=== PATIENT | female | born 1975 | race Caucasian/White ===

== ENCOUNTER 2018-01-27 06:26 | Inpatient (IN) | payer MEDICAID ==
[~2018-01-27] VITALS: Ht 160 cm; Wt 82.6 kg
[2018-01-27 06:30] VITALS: Ht 160 cm; Wt 82.6 kg
[2018-01-27 07:24] LABS: BASOPHIL % 0.4 % (0-2); PLATELET COUNT 203 x10^3mcL (130-400); RED CELL DISTRIBUTION WIDTH 14.4 % (11.5-14.5)
[2018-01-27 07:36] LABS: CALCIUM 8.7 mg/dL (8.5-10.1); CARBON DIOXIDE 27.8 mmol/L (21-32); CHLORIDE SERUM 103 mmol/L (98-107); CREATININE SERUM 0.6 mg/dL (0.6-1.0); GFR1 > 60 mL/min; GLUCOSE SERUM 95 mg/dL (74-106); POTASSIUM SERUM 3.4 mmol/L (3.5-5.1); SODIUM SERUM 135 mmol/L (136-145)
[2018-01-27 07:44] LABS: UA SPECIFIC GRAVITY 1.025 (1.005-1.035); microscopic required? YES; urine erythrocyte 2+ (NEGATIVE)
[2018-01-27 07:49] LABS: ALBUMIN 3.6 g/dL (3.4-5.0); ALKALINE PHOSPHATASE 61 U/L (46-116); ALT/SGPT 26 U/L (14-59); AMYLASE 50 U/L (25-115); AST/SGOT 25 U/L (15-37); BILIRUBIN TOTAL 0.31 mg/dL (0.20-1.00); CHOLESTEROL 186 mg/dL (<200); HDL CHOLESTEROL 37 mg/dL (40-60); LIPASE 74 IU/L (73-393); T4(THYROXINE) 7.3 ug/dL (4.7-13.3); TOTAL PROTEIN, SERUM 7.8 g/dL (6.4-8.2)
[2018-01-27 08:37] LABS: AMPHETAMINE QUAL UR NONE DETECTED (See below)
[2018-01-27 10:38] LABS: MAGNESIUM 2.1 mg/dL (1.8-2.4); PHOSPHOROUS 3.8 mg/dL (2.5-4.9)
[2018-01-27 12:05] VITALS: BP 98/47
[2018-01-27 16:43] VITALS: BP 96/49
[2018-01-27 20:18] VITALS: BP 102/47
[2018-01-28 05:25] VITALS: BP 104/56
[2018-01-28 06:32] LABS: CALCIUM 8.9 mg/dL (8.5-10.1); CARBON DIOXIDE 27.1 mmol/L (21-32); CHLORIDE SERUM 105 mmol/L (98-107); CREATININE SERUM 0.7 mg/dL (0.6-1.0); GFR1 > 60 mL/min; GLUCOSE SERUM 109 mg/dL (74-106); POTASSIUM SERUM 4.4 mmol/L (3.5-5.1); SODIUM SERUM 139 mmol/L (136-145)
[2018-01-28 07:23] LABS: BASOPHIL % 0.5 % (0-2); PLATELET COUNT 206 x10^3mcL (130-400); RED CELL DISTRIBUTION WIDTH 15.4 % (11.5-14.5)
[2018-01-28 09:22] VITALS: BP 101/57
[2018-01-28 17:12] VITALS: BP 93/54
[2018-01-28 20:49] VITALS: BP 103/54
[2018-01-29 05:30] VITALS: BP 92/47
[2018-01-29 06:31] LABS: CALCIUM 8.3 mg/dL (8.5-10.1); CARBON DIOXIDE 23.4 mmol/L (21-32); CHLORIDE SERUM 104 mmol/L (98-107); CREATININE SERUM 0.4 mg/dL (0.6-1.0); GFR1 > 60 mL/min; GLUCOSE SERUM 93 mg/dL (74-106); MAGNESIUM 2.3 mg/dL (1.8-2.4); PHOSPHOROUS 3.8 mg/dL (2.5-4.9); POTASSIUM SERUM 4.4 mmol/L (3.5-5.1); SODIUM SERUM 135 mmol/L (136-145)
[2018-01-29 08:14] LABS: BASOPHIL % 0.2 % (0-2); PLATELET COUNT 229 x10^3mcL (130-400)
[2018-01-29 08:28] VITALS: BP 100/54
[2018-01-29 08:33] LABS: RED CELL DISTRIBUTION WIDTH 15.2 % (11.5-14.5)
[2018-01-29 12:27] VITALS: BP 114/55
[2018-01-29 16:26] VITALS: BP 112/66
[2018-01-29 20:40] VITALS: BP 95/45
[2018-01-30 05:57] VITALS: BP 94/52
[2018-01-30 08:35] VITALS: BP 108/65
[2018-01-30 17:10] VITALS: BP 108/65
== END 2018-01-30 20:53 | disposition home or self-care (01) | DRG 263 ==
LOC: ED 06:26 → MU 09:33
PROVIDERS: Emergency Medicine; Internal Medicine; Surgery
PROC: 0FT44ZZ Resection of Gallbladder, Percutaneous Endoscopic Approach (ICD-10-PCS; principal; 2018-01-28 10:30)
DX: K80.70 Calculus of gallbladder and bile duct without cholecystitis without obstruction (principal); E87.6 Hypokalemia; N76.0 Acute vaginitis; Z68.31 Body mass index [BMI] 31.0-31.9, adult
CPT/HCPCS: 83880; J0690; J1170; J1885; J2405; J2704; J3010; J3490; J7030; J7120; Q0092; Q0162; Q0163